=== PATIENT | male | born 1960 ===

== ENCOUNTER 2023-04-23 08:21 | Inpatient (IN) ==
[2023-04-23] MEDS: LACTATED RINGERS 1,000 ML IV ONE ×3 (08:59→11:45)
[2023-04-23] MEDS: ONDANSETRON 4 MG/2 ML VIAL IV ONE (09:03)
[2023-04-23 09:18] LABS: POC Blood Urea Nitrogen 38 (6-20); POC Calcium, Ionized 1.02 (1.16-1.32); POC Chloride 79 (96-108); POC Creatinine 3.5 (0.6-1.2); POC Glucose, Random > 700 (70-105); POC Sodium 121 (133-145)
[2023-04-23 09:35] LABS: Basophils # (Auto) 0.02 K/mcL (0.00-0.30); Basophils % (Auto) 0.1 % (0.0-2.0); Eosinophils # (Auto) 0 K/mcL (0.00-0.70); Eosinophils % (Auto) 0 % (0.0-7.0); Hematocrit 40.8 % (40.1-51.0); Hemoglobin 13.6 g/dL (13.7-17.5); Lymphocytes # (Auto) 0.37 K/mcL (1.50-4.80); Lymphocytes % (Auto) 2.1 % (15.5-49.0); Mean Cell Volume 98.6 fL (80.0-100.0); Mean Corpuscular HGB Conc 33.3 g/dL (31.0-36.0); Mean Platelet Volume 10.5 fL (8.8-12.5); Monocytes # (Auto) 0.49 K/mcL (0.10-0.90); Monocytes % (Auto) 2.7 % (1.0-12.0); Neutrophils % (Auto) 94.6 % (38.0-78.0); Platelet Count 186 K/mcL (140-440); RBC 4.14 M/mcL (4.63-6.08); Red Cell Distribution Width 15.6 % (11.5-14.5); WBC 17.9 K/mcL (4.5-11.0)
[2023-04-23 10:20] LABS: ALT/SGPT 26 U/L (<40); AST/SGOT 41 U/L (<40); Albumin 3.5 gm/dL (3.2-5.2); Alkaline Phosphatase 65 U/L (39-117); Bilirubin,Direct 0.6 mg/dL (<0.3); Bilirubin,Total 2.1 mg/dL (0.1-1.0); Globulin 3.1 gm/dL (2.2-3.7)
[2023-04-23 10:24] LABS: Phosphorous 3.5 mg/dL (2.5-4.5)
[2023-04-23 10:28] LABS: Blood Urea Nitrogen 42 mg/dL (6-20); Calcium 8.8 mg/dL (8.6-10.4); Carbon Dioxide 13 mmol/L (22-30); Chloride 71 mmol/L (96-108); Glomerular Filtration Rate 20; Glucose 956 mg/dL (70-105)
[2023-04-23] MEDS: POTASSIUM CHLORIDE 20 MEQ in DEXTROSE 5% IN WATER 250 ML IV SCH (10:33)
[2023-04-23] MEDS: MAGNESIUM SULFATE 2 GM/50 ML BAG IV ONE ×3 (10:39→16:40)
[2023-04-23 11:08] LABS: Estimated Average Glucose(eAG) 289 mg/dL; Hemoglobin A1C 11.7 % Hgb (4.0-6.0)
[2023-04-23] MEDS ORDERED: SENNOSIDES 1 TABLET PO PRN (13:12)
[2023-04-23] MEDS ORDERED: PROMETHAZINE 25 MG/ML VIAL IV PRN (13:12)
[2023-04-23] MEDS: POTASSIUM CHLORIDE 20 MEQ TABLET PO ONE ×3 (13:44→20:01)
[2023-04-23] MEDS: PANTOPRAZOLE 40 MG VIAL IV ONE (13:45)
[2023-04-23] MEDS: PANTOPRAZOLE 80 MG in 0.9 % SODIUM CHLORIDE 100 ML IV SCH (13:51)
[2023-04-23] MEDS: 0.9 % SODIUM CHLORIDE 10 ML SYRINGE IV SCH (13:55)
[2023-04-23] MEDS: POTASSIUM CHLORIDE 40 MEQ in 0.45 % SODIUM CHLORIDE 1,000 ML IV SCH ×2 (13:55→16:45)
[2023-04-23] MEDS ORDERED: diphenhydrAMINE 50 MG/ML VIAL IV PRN (14:37)
[2023-04-23 14:38] LABS: ABG Methemoglobin 0.3 % (0.4-1.5); Total Hemoglobin 14.1 gm/Dl (13.5-16.5); VBG Base Excess -6 (-2-3); VBG HCO3 16.3 mmol/L (24.0-28.0); VBG Oxygen Saturation 84.5 % (40.0-70.0); VBG PCO2 23.9 mmHg (41.0-51.0); VBG PH 7.45 U (7.32-7.42); VBG PO2 65.2 mmHg (25.0-40.0)
[2023-04-23 14:56] LABS: Glucose 835 mg/dL (70-105)
[2023-04-23 15:08] LABS: Appearance,Urine Clear (Clear); Bacteria,Urine 0 /hpf (0); Bilirubin,Urine Non-reportable mg/dL (Negative); Color,Urine Yellow; Culture Indicated,Urine No; Glucose,Urine (UA) >=1000 mg/dL (Negative); Ketones,Urine 40 mg/dL (Negative); Leukocyte Esterase,Urine Negative /uL (Negative); Mucus,Urine Many /hpf; Nitrate,Urine Negative (Negative); PH,Urine 5.5 (5.0-9.0); Protein,Urine 100 mg/dL (Negative); Urine Blood Large ery/mcL (Negative); Urine Hyaline Cast 3 /lph (0-2); Urine RBC 1 /hpf (0-3); Urine Squamous Epithelial Cell 0 /hpf (0-4); Urine WBC 5 /hpf (0-4); Urobilinogen,Urine Normal
[2023-04-23 15:11] LABS: Blood Urea Nitrogen 43 mg/dL (6-20); Calcium 8.2 mg/dL (8.6-10.4); Carbon Dioxide 13 mmol/L (22-30); Chloride 80 mmol/L (96-108); Glomerular Filtration Rate 23; Glucose 827 mg/dL (70-105); Phosphorous 3.3 mg/dL (2.5-4.5)
[2023-04-23] MEDS ORDERED: INSULIN REGULAR, HUMAN 50 UNIT in 0.9 % SODIUM CHLORIDE 99.5 ML IV SCH (15:30)
[2023-04-23] MEDS: cefTRIAXone 2 GM in DEXTROSE 5% IN WATER 50 ML IV SCH (16:07)
[2023-04-23] MEDS: INSULIN REGULAR, HUMAN 1 UNIT/0.01 ML UNIT IV ONE (16:17)
[2023-04-23] MEDS: 0.9 % SODIUM CHLORIDE 250 ML IV SCH (16:18)
[2023-04-23] MEDS: INSULIN REGULAR, HUMAN 50 UNIT in 0.9 % SODIUM CHLORIDE 99.5 ML IV SCH (16:19)
[2023-04-23 18:32] LABS: ABG Methemoglobin 0.4 % (0.4-1.5); Total Hemoglobin 13.7 gm/Dl (13.5-16.5); VBG Base Excess -4 (-2-3); VBG HCO3 18.1 mmol/L (24.0-28.0); VBG Oxygen Saturation 91.2 % (40.0-70.0); VBG PCO2 26.1 mmHg (41.0-51.0); VBG PH 7.46 U (7.32-7.42); VBG PO2 84.7 mmHg (25.0-40.0); VBG Total CO2 18.9 mmol/L (25.0-29.0)
[2023-04-23 19:32] LABS: Albumin 3.1 gm/dL (3.2-5.2); Calcium 8.6 mg/dL (8.6-10.4); Phosphorous 2.7 mg/dL (2.5-4.5)
[2023-04-23] MEDS ORDERED: HEPARIN 5,000 UNIT/ML VIAL SQ SCH (21:00)
[2023-04-23] MEDS: DEXTROSE 5%-1/2NS W/40MEQ KCL 1,000 ML IV SCH (21:23)
[2023-04-23] MEDS: POTASSIUM CHLORIDE 20 MEQ/10 ML VIAL IV ONE (21:24)
[2023-04-23 22:37] LABS: Albumin 3.2 gm/dL (3.2-5.2); Calcium 8.6 mg/dL (8.6-10.4); Phosphorous 2.3 mg/dL (2.5-4.5)
[2023-04-23 22:49] LABS: ABG Methemoglobin 0.3 % (0.4-1.5); Total Hemoglobin 13.9 gm/Dl (13.5-16.5); VBG Base Excess 0 (-2-3); VBG HCO3 22.1 mmol/L (24.0-28.0); VBG Oxygen Saturation 93.3 % (40.0-70.0); VBG PCO2 29.2 mmHg (41.0-51.0); VBG PO2 109.3 mmHg (25.0-40.0)
[2023-04-23] MEDS: guaiFENesin/DEXTROMETHORPHAN 5ML UD CUP PO PRN (23:51)
[2023-04-23] MEDS: guaiFENesin/DEXTROMETHORPHAN 5ML UD CUP ONE ×2 (23:59)
[2023-04-24 02:45] LABS: ABG Methemoglobin 0.3 % (0.4-1.5); Total Hemoglobin 13.1 gm/Dl (13.5-16.5); VBG Base Excess 4 (-2-3); VBG HCO3 24.8 mmol/L (24.0-28.0); VBG Oxygen Saturation 93.1 % (40.0-70.0); VBG PCO2 26.9 mmHg (41.0-51.0); VBG PH 7.58 U (7.32-7.42); VBG PO2 133.6 mmHg (25.0-40.0); VBG Total CO2 25.7 mmol/L (25.0-29.0)
[2023-04-24 02:52] LABS: Calcium 8.4 mg/dL (8.6-10.4); Phosphorous 1.5 mg/dL (2.5-4.5)
[2023-04-24] MEDS: POTASSIUM CHLORIDE 20 MEQ TABLET PO PRN (03:19)
[2023-04-24] MEDS: POTASSIUM CHLORIDE 20 MEQ TABLET PO ONE (04:38)
[2023-04-24] MEDS: POTASSIUM CHLORIDE 20 MEQ/10 ML VIAL IV ONE (04:38)
[2023-04-24 06:19] LABS: ABG Methemoglobin 0.4 % (0.4-1.5); Total Hemoglobin 12.6 gm/Dl (13.5-16.5); VBG Base Excess 1 (-2-3); VBG HCO3 22.9 mmol/L (24.0-28.0); VBG Oxygen Saturation 92.4 % (40.0-70.0); VBG PCO2 28.8 mmHg (41.0-51.0); VBG PH 7.52 U (7.32-7.42); VBG PO2 136.6 mmHg (25.0-40.0); VBG Total CO2 23.8 mmol/L (25.0-29.0)
[2023-04-24 06:22] LABS: Basophils # (Auto) 0.02 K/mcL (0.00-0.30); Basophils % (Auto) 0.1 % (0.0-2.0); Eosinophils # (Auto) 0.15 K/mcL (0.00-0.70); Eosinophils % (Auto) 1.1 % (0.0-7.0); Hematocrit 33.3 % (40.1-51.0); Hemoglobin 11.3 g/dL (13.7-17.5); Lymphocytes # (Auto) 0.79 K/mcL (1.50-4.80); Lymphocytes % (Auto) 5.6 % (15.5-49.0); Mean Cell Volume 97.7 fL (80.0-100.0); Mean Corpuscular HGB Conc 33.9 g/dL (31.0-36.0); Mean Platelet Volume 9.8 fL (8.8-12.5); Monocytes # (Auto) 0.47 K/mcL (0.10-0.90); Monocytes % (Auto) 3.3 % (1.0-12.0); Neutrophils % (Auto) 89.1 % (38.0-78.0); Platelet Count 121 K/mcL (140-440); RBC 3.41 M/mcL (4.63-6.08); Red Cell Distribution Width 15.4 % (11.5-14.5); WBC 14.1 K/mcL (4.5-11.0)
[2023-04-24 07:13] LABS: Calcium 8.1 mg/dL (8.6-10.4); Phosphorous 1.3 mg/dL (2.5-4.5)
[2023-04-24] MEDS: POTASSIUM PHOSPHATE 20 MEQ in DEXTROSE 5% IN WATER 250 ML IV ONE (08:20)
[2023-04-24] MEDS: DEXTROSE 5%-1/2NS W/40MEQ KCL 1,000 ML IV SCH ×2 (08:21→14:19)
[2023-04-24] MEDS: POTASSIUM PHOSPHATE 40 MEQ in DEXTROSE 5% IN WATER 500 ML IV ONE (09:47)
[2023-04-24 11:23] LABS: Albumin 3.1 gm/dL (3.2-5.2); Calcium 8.2 mg/dL (8.6-10.4); Phosphorous 1.2 mg/dL (2.5-4.5)
[2023-04-24 13:37] LABS: Calcium 7.9 mg/dL (8.6-10.4); Phosphorous 2.4 mg/dL (2.5-4.5)
[2023-04-24] MEDS: POTASSIUM CHLORIDE 40 MEQ in DEXTROSE 5%-1/2NS 1,000 ML IV SCH ×3 (14:12→21:41)
[2023-04-24] MEDS: GABAPENTIN 300 MG CAPSULE PO SCH (15:01)
[2023-04-24] MEDS: FLUZONE QUAD QS2023-24/PF 60 MCG/0.5 ML SYRINGE IM ONE (15:02)
[2023-04-24] MEDS ORDERED: KETAMINE 50 MG/ML ML IV PRN (15:53)
[2023-04-24] MEDS: MIDAZOLAM 2 MG/2 ML VIAL IV SCH (16:11)
[2023-04-24] MEDS: PROPOFOL 200 MG/20 ML VIAL IV SCH (16:11)
[2023-04-24 17:31] LABS: Albumin 3.1 gm/dL (3.2-5.2); Blood Urea Nitrogen 32 mg/dL (6-20); Calcium 7.7 mg/dL (8.6-10.4); Carbon Dioxide 21 mmol/L (22-30); Chloride 96 mmol/L (96-108); Glomerular Filtration Rate 59; Glucose 177 mg/dL (70-105); Phosphorous 1.8 mg/dL (2.5-4.5)
[2023-04-24] MEDS: FLUCONAZOLE 400 MG/200 ML BAG IV ONE (19:39)
[2023-04-24] MEDS: 0.9 % SODIUM CHLORIDE 250 ML IV SCH (20:03)
[2023-04-24] MEDS: INSULIN GLARGINE, HUMAN 1 UNIT/0.01 ML SQ SCH (21:54)
[2023-04-25] MEDS: INSULIN REGULAR, HUMAN 1 UNIT/0.01 ML UNIT ONE (04:43)
[2023-04-25 06:14] LABS: Basophils # (Auto) 0.01 K/mcL (0.00-0.30); Basophils % (Auto) 0.1 % (0.0-2.0); Eosinophils # (Auto) 0.13 K/mcL (0.00-0.70); Eosinophils % (Auto) 1.5 % (0.0-7.0); Hematocrit 34.8 % (40.1-51.0); Lymphocytes # (Auto) 1.05 K/mcL (1.50-4.80); Lymphocytes % (Auto) 12.2 % (15.5-49.0); Mean Corpuscular HGB Conc 31.6 g/dL (31.0-36.0); Mean Platelet Volume 10.9 fL (8.8-12.5); Monocytes # (Auto) 0.31 K/mcL (0.10-0.90); Monocytes % (Auto) 3.6 % (1.0-12.0); Platelet Count 117 K/mcL (140-440); RBC 3.38 M/mcL (4.63-6.08); Red Cell Distribution Width 15.9 % (11.5-14.5); WBC 8.6 K/mcL (4.5-11.0)
[2023-04-25 06:28] LABS: ALT/SGPT 20 U/L (<40); AST/SGOT 51 U/L (<40); Alkaline Phosphatase 82 U/L (39-117); Bilirubin,Direct 0.3 mg/dL (<0.3); Bilirubin,Total 0.7 mg/dL (0.1-1.0); Blood Urea Nitrogen 21 mg/dL (6-20); Calcium 7.3 mg/dL (8.6-10.4); Carbon Dioxide 19 mmol/L (22-30); Chloride 97 mmol/L (96-108); Glomerular Filtration Rate 92; Glucose 201 mg/dL (70-105); Lactate Dehydrogenase 191 U/L (135-225); Phosphorous 1.3 mg/dL (2.5-4.5); Triglycerides 103 mg/dL (<150); Uric Acid 4.2 mg/dL (2.5-8.0)
[2023-04-25] MEDS: NEUTRA PHOS 1 PACKET PO SCH (08:08)
[2023-04-25] MEDS: OMEPRAZOLE 20 MG CAPSULE PO SCH (08:08)
[2023-04-25] MEDS: PHOSPHORUS 250 MG TABLET PO SCH (08:08)
[2023-04-25] MEDS: ACETAMINOPHEN 325 MG TABLET PO PRN (08:08)
[2023-04-25] MEDS: FLUCONAZOLE 100 MG TABLET PO SCH (08:08)
[2023-04-25] MEDS: PANTOPRAZOLE 40 MG PACKET PO SCH (08:09)
[2023-04-25 08:30] LABS: Beta Hydroxybutyrate 3.48 mmol/L (<0.27)
[2023-04-25] MEDS: POTASSIUM PHOSPHATE 40 MEQ in DEXTROSE 5% IN WATER 500 ML IV ONE (09:25)
[2023-04-25] MEDS: FLUZONE QUAD QS2023-24/PF 60 MCG/0.5 ML SYRINGE IM ONE (09:26)
[2023-04-25] MEDS: HYDROcodone/APAP 5/325MG TABLET PO PRN (11:16)
[2023-04-25] MEDS: INSULIN LISPRO 1 UNIT/0.01 ML UNIT SQ SCH (12:33)
[2023-04-25] MEDS ORDERED: POTASSIUM CHLORIDE 20 MEQ TABLET PO PRN (16:26)
[2023-04-25] MEDS ORDERED: POTASSIUM CHLORIDE 40 MEQ in DEXTROSE 5% IN WATER 500 ML IV PRN (16:31)
[2023-04-25] MEDS: POTASSIUM CHLORIDE 20 MEQ TABLET PO PRN (16:40)
[2023-04-25] MEDS: LOPERAMIDE 2 MG CAPSULE PO PRN (16:40)
[2023-04-25] MEDS: LOPERAMIDE 2 MG CAPSULE PO ONE (16:41)
[2023-04-25] MEDS: MAGNESIUM SULFATE 2 GM/50 ML BAG IV PRN (16:46)
[2023-04-25] MEDS: hydrALAZINE 20 MG/ML VIAL IV PRN (21:18)
[2023-04-26 05:53] LABS: Basophils # (Auto) 0.01 K/mcL (0.00-0.30); Basophils % (Auto) 0.1 % (0.0-2.0); Eosinophils # (Auto) 0.13 K/mcL (0.00-0.70); Eosinophils % (Auto) 1.6 % (0.0-7.0); Hematocrit 36.2 % (40.1-51.0); Hemoglobin 11.7 g/dL (13.7-17.5); Lymphocytes % (Auto) 14.8 % (15.5-49.0); Mean Cell Volume 103.4 fL (80.0-100.0); Mean Corpuscular HGB Conc 32.3 g/dL (31.0-36.0); Mean Platelet Volume 10.7 fL (8.8-12.5); Monocytes # (Auto) 0.54 K/mcL (0.10-0.90); Monocytes % (Auto) 6.6 % (1.0-12.0); Neutrophils % (Auto) 76.5 % (38.0-78.0); Platelet Count 121 K/mcL (140-440); Red Cell Distribution Width 15.9 % (11.5-14.5); WBC 8.1 K/mcL (4.5-11.0)
[2023-04-26 06:19] LABS: ALT/SGPT 13 U/L (<40); AST/SGOT 23 U/L (<40); Albumin 3.1 gm/dL (3.2-5.2); Alkaline Phosphatase 91 U/L (39-117); Bilirubin,Direct 0.3 mg/dL (<0.3); Bilirubin,Total 0.7 mg/dL (0.1-1.0); Blood Urea Nitrogen 13 mg/dL (6-20); Calcium 7.2 mg/dL (8.6-10.4); Carbon Dioxide 21 mmol/L (22-30); Chloride 99 mmol/L (96-108); Globulin 3.2 gm/dL (2.2-3.7); Glomerular Filtration Rate 97; Glucose 183 mg/dL (70-105); Lactate Dehydrogenase 172 U/L (135-225); Phosphorous 2.7 mg/dL (2.5-4.5); Triglycerides 109 mg/dL (<150); Uric Acid 2.8 mg/dL (2.5-8.0)
[2023-04-26 07:49] LABS: Beta Hydroxybutyrate 2.13 mmol/L (<0.27)
== END 2023-04-26 11:12 | disposition home or self-care (01) | DRG 638 ==
LOC: ED 08:21 → ICU 13:01
PROVIDERS: ADMIT Internal Medicine; ATTEND Internal Medicine